=== PATIENT | male | born 1955 | race Caucasian/White ===

== ENCOUNTER 2019-09-28 14:57 | Inpatient (IN) | payer OTHER, SELFPAY ==
[~2019-09-28] VITALS: Ht 175.3 cm; Wt 72.3 kg
[2019-09-28 16:27] LABS: BASOPHIL % 0.4 % (0-2); PLATELET COUNT 218 x10^3mcL (130-400); RED CELL DISTRIBUTION WIDTH 12.4 % (11.5-14.5)
[2019-09-28 16:47] LABS: CALCIUM 7.7 mg/dL (8.5-10.1); CARBON DIOXIDE 22.4 mmol/L (21-32); CHLORIDE SERUM 104 mmol/L (98-107); CREATININE SERUM 1.3 mg/dL (0.7-1.3); GFR1 59 mL/min; GLUCOSE SERUM 122 mg/dL (74-106); SODIUM SERUM 141 mmol/L (136-145)
[2019-09-28 16:51] LABS: ALKALINE PHOSPHATASE 200 U/L (46-116); ALT/SGPT 110 U/L (16-63); AST/SGOT 130 U/L (15-37); BILIRUBIN TOTAL 1.4 mg/dL (0.20-1.00)
[2019-09-28 16:57] LABS: ALBUMIN 2.8 g/dL (3.4-5.0); LACTIC DEHYDROGENASE (LDH) 906 U/L (100-190)
[2019-09-28 17:21] LABS: C REACTIVE PROTEIN 18.5 mg/dL (<=0.9)
[2019-09-28 20:52] VITALS: BP 126/71
[2019-09-28 21:44] LABS: T3 TOTAL 0.69 ng/mL
[2019-09-28 22:03] LABS: FREE T4 1.34 ng/dL (0.76-1.46); FREE THYROXINE INDEX 3.3 ug/dL (1.4-4.5); T4(THYROXINE) 9.1 ug/dL (4.7-13.3)
[2019-09-28 22:32] VITALS: BP 126/71
[2019-09-29 05:26] VITALS: BP 121/79
[2019-09-29 07:19] LABS: CALCIUM 9.2 mg/dL (8.5-10.1); CARBON DIOXIDE 22.5 mmol/L (21-32); CHLORIDE SERUM 104 mmol/L (98-107); CREATININE SERUM 1.1 mg/dL (0.7-1.3); GFR1 > 60 mL/min; GLUCOSE SERUM 160 mg/dL (74-106); POTASSIUM SERUM 3.8 mmol/L (3.5-5.1); SODIUM SERUM 141 mmol/L (136-145)
[2019-09-29 08:12] LABS: PLATELET COUNT 245 x10^3mcL (130-400); RED CELL DISTRIBUTION WIDTH 12.7 % (11.5-14.5)
[2019-09-29 08:27] VITALS: BP 121/74
[2019-09-29 12:23] VITALS: BP 134/84
[2019-09-29 13:00] VITALS: BP 134/84
[2019-09-29 17:12] VITALS: BP 116/72
[2019-09-29 20:28] VITALS: BP 105/68
[2019-09-30 05:33] VITALS: BP 103/64
[2019-09-30 08:12] LABS: ALBUMIN 2.5 g/dL (3.4-5.0); ALKALINE PHOSPHATASE 165 U/L (46-116); ALT/SGPT 75 U/L (16-63); AST/SGOT 66 U/L (15-37); BILIRUBIN TOTAL 0.9 mg/dL (0.20-1.00); CARBON DIOXIDE 21.5 mmol/L (21-32); CHLORIDE SERUM 104 mmol/L (98-107); CREATININE SERUM 0.9 mg/dL (0.7-1.3); GFR1 > 60 mL/min; GLUCOSE SERUM 131 mg/dL (74-106); MAGNESIUM 2.9 mg/dL (1.8-2.4); POTASSIUM SERUM 4.4 mmol/L (3.5-5.1); SODIUM SERUM 139 mmol/L (136-145); TOTAL PROTEIN, SERUM 6.9 g/dL (6.4-8.2)
[2019-09-30 09:42] VITALS: BP 115/68
[2019-09-30 12:31] VITALS: BP 117/72
[2019-09-30 12:57] LABS: PLATELET COUNT 302 x10^3mcL (130-400); RED CELL DISTRIBUTION WIDTH 13.1 % (11.5-14.5)
[2019-09-30 13:06] LABS: BASOPHIL % 0 % (0-2)
[2019-09-30 17:22] VITALS: BP 125/74
[2019-09-30 21:21] VITALS: BP 111/65
[2019-10-01 06:36] VITALS: BP 102/64
[2019-10-01 09:04] LABS: ALKALINE PHOSPHATASE 205 U/L (46-116); ALT/SGPT 100 U/L (16-63); AST/SGOT 93 U/L (15-37); BILIRUBIN TOTAL 1.52 mg/dL (0.20-1.00); CALCIUM 8.6 mg/dL (8.5-10.1); CARBON DIOXIDE 22.1 mmol/L (21-32); CHLORIDE SERUM 102 mmol/L (98-107); CREATININE SERUM 1.1 mg/dL (0.7-1.3); GFR1 > 60 mL/min; GLUCOSE SERUM 116 mg/dL (74-106); MAGNESIUM 2.4 mg/dL (1.8-2.4); POTASSIUM SERUM 3.6 mmol/L (3.5-5.1); SODIUM SERUM 137 mmol/L (136-145); TOTAL PROTEIN, SERUM 6.4 g/dL (6.4-8.2)
[2019-10-01 09:14] LABS: ALBUMIN 2.3 g/dL (3.4-5.0)
[2019-10-01 09:19] LABS: BASOPHIL % 0.1 % (0-2); PLATELET COUNT 318 x10^3mcL (130-400); RED CELL DISTRIBUTION WIDTH 12.3 % (11.5-14.5)
[2019-10-01 09:43] VITALS: BP 114/69
[2019-10-01 13:59] VITALS: BP 124/79
[2019-10-01 17:35] VITALS: Ht 175.3 cm; Wt 72.3 kg
[2019-10-01 18:45] VITALS: BP 128/78
[2019-10-01 21:28] VITALS: BP 114/72
[2019-10-02 06:43] VITALS: BP 135/79
[2019-10-02 08:33] LABS: BILIRUBIN DIRECT 0.47 mg/dL (0.0-0.2); BILIRUBIN TOTAL 0.9 mg/dL (0.20-1.00); TOTAL PROTEIN, SERUM 6.3 g/dL (6.4-8.2)
[2019-10-02 08:49] LABS: ALBUMIN 2.1 g/dL (3.4-5.0)
[2019-10-02 09:50] VITALS: BP 118/72
[2019-10-02 12:10] VITALS: BP 114/72
[2019-10-02 16:50] VITALS: BP 117/66
[2019-10-02 21:46] VITALS: BP 111/69
[2019-10-03] VITALS (7 sets, daily range): BP systolic 98–119; BP diastolic 67–77
[2019-10-03 07:56] LABS: PLATELET COUNT 363 x10^3mcL (130-400); RED CELL DISTRIBUTION WIDTH 12.5 % (11.5-14.5)
[2019-10-03 08:14] LABS: CALCIUM 9.1 mg/dL (8.5-10.1); CARBON DIOXIDE 23.6 mmol/L (21-32); CHLORIDE SERUM 102 mmol/L (98-107); GFR1 > 60 mL/min; GLUCOSE SERUM 115 mg/dL (74-106); MAGNESIUM 2.7 mg/dL (1.8-2.4); SODIUM SERUM 140 mmol/L (136-145)
[2019-10-03 08:26] LABS: BILIRUBIN DIRECT 0.35 mg/dL (0.0-0.2); BILIRUBIN TOTAL 1.1 mg/dL (0.20-1.00)
[2019-10-03 08:31] LABS: ALBUMIN 2.3 g/dL (3.4-5.0)
[2019-10-03 08:55] LABS: BASOPHIL % 0 % (0-2)
[2019-10-04 05:49] VITALS: BP 133/74
[2019-10-04 06:47] LABS: PLATELET COUNT 384 x10^3mcL (130-400); RED CELL DISTRIBUTION WIDTH 12.3 % (11.5-14.5)
[2019-10-04 06:55] LABS: BASOPHIL % 0 % (0-2)
[2019-10-04 07:36] LABS: ALKALINE PHOSPHATASE 240 U/L (46-116); ALT/SGPT 80 U/L (16-63); AST/SGOT 72 U/L (15-37); BILIRUBIN DIRECT 0.52 mg/dL (0.0-0.2); CALCIUM 8.6 mg/dL (8.5-10.1); CARBON DIOXIDE 23.6 mmol/L (21-32); CHLORIDE SERUM 104 mmol/L (98-107); GFR1 > 60 mL/min; GLUCOSE SERUM 124 mg/dL (74-106); POTASSIUM SERUM 4.5 mmol/L (3.5-5.1); SODIUM SERUM 140 mmol/L (136-145); TOTAL PROTEIN, SERUM 6.5 g/dL (6.4-8.2)
[2019-10-04 09:30] VITALS: BP 107/69
[2019-10-04 13:06] VITALS: BP 120/77
[2019-10-04 17:55] VITALS: BP 112/72
[2019-10-04 22:03] VITALS: BP 94/54
[2019-10-05 06:15] VITALS: BP 132/86
[2019-10-05 07:47] LABS: BILIRUBIN DIRECT 0.77 mg/dL (0.0-0.2); BILIRUBIN TOTAL 1.29 mg/dL (0.20-1.00)
[2019-10-05 07:48] LABS: ALBUMIN 2.1 g/dL (3.4-5.0); TOTAL PROTEIN, SERUM 5.7 g/dL (6.4-8.2)
[2019-10-05 09:30] VITALS: BP 106/66
[2019-10-05 11:44] LABS: CALCIUM 8.6 mg/dL (8.5-10.1); CARBON DIOXIDE 24.5 mmol/L (21-32); CHLORIDE SERUM 103 mmol/L (98-107); CREATININE SERUM 1.1 mg/dL (0.7-1.3); GFR1 > 60 mL/min; GLUCOSE SERUM 147 mg/dL (74-106); POTASSIUM SERUM 4.6 mmol/L (3.5-5.1); SODIUM SERUM 137 mmol/L (136-145)
[2019-10-05 13:30] VITALS: BP 98/64
[2019-10-05 17:20] VITALS: BP 98/68
[2019-10-05 22:02] VITALS: BP 112/77
[2019-10-06] VITALS (8 sets, daily range): BP systolic 74–111; BP diastolic 28–87
[2019-10-06 08:48] LABS: CALCIUM 8.6 mg/dL (8.5-10.1); CARBON DIOXIDE 27.1 mmol/L (21-32); CHLORIDE SERUM 104 mmol/L (98-107); CREATININE SERUM 1.2 mg/dL (0.7-1.3); GFR1 > 60 mL/min; GLUCOSE SERUM 142 mg/dL (74-106); POTASSIUM SERUM 5.2 mmol/L (3.5-5.1); SODIUM SERUM 138 mmol/L (136-145)
[2019-10-06 09:02] LABS: PLATELET COUNT 291 x10^3mcL (130-400); RED CELL DISTRIBUTION WIDTH 12.4 % (11.5-14.5)
[2019-10-06 09:06] LABS: BASOPHIL % 0 % (0-2)
== END 2019-10-07 03:57 | disposition expired | DRG 208 ==
LOC: ED 14:57 → DU 17:28
PROVIDERS: Emergency Medicine; Internal Medicine Pulmonary Disease; ADMIT Hospitalist; ATTEND Hospitalist
PROC: 30233K1 Transfusion of Nonautologous Frozen Plasma into Peripheral Vein, Percutaneous Approach (ICD-10-PCS; 2019-10-02)
PROC: 5A1935Z Respiratory Ventilation, Less than 24 Consecutive Hours (ICD-10-PCS; principal; 2019-10-06)
PROC: 0BH17EZ Insertion of Endotracheal Airway into Trachea, Via Natural or Artificial Opening (ICD-10-PCS; 2019-10-06)
PROC: 02HV33Z Insertion of Infusion Device into Superior Vena Cava, Percutaneous Approach (ICD-10-PCS; 2019-10-06)
PROC: B548ZZA Ultrasonography of Superior Vena Cava, Guidance (ICD-10-PCS; 2019-10-06)
PROC: 5A12012 Performance of Cardiac Output, Single, Manual (ICD-10-PCS; 2019-10-07)
DX: U07.1 COVID-19 (principal); J12.9 Viral pneumonia, unspecified; J96.01 Acute respiratory failure with hypoxia; I46.9 Cardiac arrest, cause unspecified
CPT/HCPCS: 36600; 82962; 83880; 84439; 85378; G0378; J0456; J0696; J1100; J1644; J1650; J2250; J2270; J3010; J3490; J7030; J7040; J7042; J7050; J7060; Q0092